=== PATIENT | female | born 1940 | race Caucasian/White ===

== ENCOUNTER 2020-03-20 15:27 | Emergency (ER) | payer MEDICARE ==
[~2020-03-20] VITALS: Ht 152.4 cm; Wt 57.4 kg
--- NOTE | 2020-03-20 16:31 | Diagnostic Imaging Report ---
Chest, 1 view, 03/20/2020. History: Pain, fall. Comparison: None available. Findings: The cardiomediastinal silhouette and pulmonary vasculature are within normal limits for a portable exam. There is no focal consolidation or pleural effusion. There are no acute osseous or soft tissue abnormalities. Impression: No acute cardiopulmonary abnormality. Signed by: Jeff Diamond on 03/20/2020 4:28 PM
--- NOTE | 2020-03-20 17:00 | Diagnostic Imaging Report ---
CT of the abdomen and pelvis, without contrast, 03/20/2020. History: Abdominal pain. Comparison: None available. Technique: Multidetector CT scanning of the abdomen and pelvis was performed from the level of the lung bases to the inferior pubic rami without intravenous or oral contrast. Coronal and sagittal multiplanar reformations were obtained. RADIATION DOSE: Total DLP: 409 mGy*cm Dose modulation, iterative reconstruction, and/or weight based adjustment of the mA/kV was utilized to reduce the radiation dose to as low as reasonably achievable. Discussion: Examination is limited without contrast. Lung bases: No visualized abnormalities. Abdomen: The liver, gallbladder, biliary tree, spleen, pancreas, adrenal glands, and kidneys are unremarkable. The abdominal aorta is calcified but within normal limits for size. There is no bowel dilatation. There is no evidence of adenopathy or free fluid. Pelvis: Enlarged uterus is present containing a large calcified fundal mass, measuring over 10 cm. The bladder is unremarkable. There is no evidence of free fluid or adenopathy. Bones and soft tissues: Advanced degenerative changes are present throughout the lower thoracic and lumbar spine without evidence of lytic or sclerotic lesion. There is grade 1 anterolisthesis of L4 and L5 without evidence of spondylolysis. IMPRESSION: 1. Calcified uterine mass consistent with large uterine fibroid. 2. 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 Otherwise unremarkable noncontrast exam. Signed by: Jeff Diamond on 03/20/2020 4:57 PM
--- NOTE | 2020-03-20 17:17 | Emergency Department Note ---
History of Present Illnes History of Present Illness Chief Complaint: Abdominal Complaints History of Present Illness This is a 79 year old female .Chief Complaint Comment Son reports that she had a fall last Tuesday or and hurt her lower back and denies that she hit her head. He is the primary caregiver and has been giving her dulcolax to help with her having a BM since she hurt her lower back in the fall and since yesterday she has been having abd bloating and distention with pain and hard dark tarry stools. Appetite is normal and states that it is hard to understand what is wrong with her. Historian: Patient, Family Member Arrival Mode: Car Onset (how long ago): day(s) (2) Location: abdomen Quality: dull Radiation: Denies non-radiation, Denies back, Denies neck, Denies extremity, Denies abdomen, Denies periumbilical, Denies flank, Denies proximal, Denies distal, Denies other Severity: mild Onset quality: gradual Duration (how long): day(s) (2) Timing of current episode: intermittent Progression: waxing and waning Chronicity: new Context: Denies recent illness, Denies recent surgery, Denies recent immobilization, Denies recent travel, Denies trauma/injury, Denies new medications, Denies hx of DVT/PE, Denies non-compliance w/ medications, Denies other Relieving factors: none Exacerbating factors: none Associated symptoms: Reports denies other symptoms; Denies confusion, Denies chest pain, Denies cough, Denies diaphoresis, Denies fever/chills, Denies headaches, Denies loss of appetite, Denies malaise, Denies nausea/vomiting, Denies rash, Denies seizure, Denies shortness of breath, Denies syncope, Denies weakness, Denies other Treatments prior to arrival: none Past Medical/Family History Physician Review I have reviewed the patient's past medical and family history. Any updates have been documented here. Past Medical History Recent Fever: No Clinical Suspicion of Infectio: No New/Unexplained Change in Ment: No Past Medical History: Hypertension, Diabetes, Hyperlipedemia Past Surgical History: None Social History Smoking Cessation: Never Smoker Counseling Performed: No Alcohol Use: None Any Illegal Drug Use: No Physically hurt or threatened: No Other Any Pre-Existing Lines (PICC,: No Review of Systems Review of Systems Constitutional: Reports no symptoms EENTM: Reports no symptoms Cardiovascular: Reports no symptoms Respiratory: Reports no symptoms Gastrointestinal: Reports no symptoms Genitourinary: Reports no symptoms; Denies as per HPI, Denies discharge, Denies dysuria, Denies frequency, Denies hematuria, Denies pain, Denies other Musculoskeletal: Reports no symptoms Integumentary: Reports no symptoms; Denies as per HPI, Denies change in color, Denies change in hair/nails, De nies dryness, Denies lesions, Denies lumps, Denies rash, Denies poor turgor, Denies ecchymosis, Denies other Neurological: Reports no symptoms; Denies as per HPI, Denies headache, Denies numbness, Denies paresthesia, Denies pre-existing deficit, Denies seizure, Denies tingling, Denies tremors, Denies weakness, Denies other Psychological: Reports no symptoms; Denies as per HPI, Denies anxiety, Denies depressed, Denies emotional problems, Denies other Endocrine: Reports no symptoms Hematological/Lymphatic: Reports no symptoms Physical Exam Related Data Allergies: Coded Allergies: No Known Allergies (Unverified , 03/20/20) Triage Vital Signs Vital Signs Date Time Temp Pulse Resp B/P (MAP) Pulse Ox O2 Delivery O2 Flow Rate FiO2 03/20/20 15:35 99.6 66 18 146/58 96 Room Air Vital signs reviewed: Yes Physical Exam CONSTITUTIONAL Constitutional: Present well-developed, Present well-nourished HENT HENT: Present normocephalic, Present atraumatic, Present oropharynx clear/moist, Present nose normal HENT L/R: Present left ext ear normal, Present right ext ear normal EYES Eyes: Reports PERRL, Reports conjunctivae normal NECK Neck: Present ROM normal PULMONARY Pulmonary: Present effort normal, Present breath sounds normal CARDIOVASCULAR Cardiovascular: Present regular rhythm, Present heart sounds normal, Present capillary refill normal, Present normal rate GASTROINTESTINAL Abdominal: Present soft, Present nontender, Present bowel sounds normal GENITOURINARY Genitourinary: Present exam deferred SKIN Skin: Present warm, Present dry MUSCULOSKELETAL Musculoskeletal: Present ROM normal NEUROLOGICAL Neurological: Present alert, Present oriented x 3, Present no gross motor or sensory deficits PSYCHOLOGICAL Psychological: Present mood/affect normal, Present judgement normal Results Laboratory Lab results reviewed: Yes Imaging Imaging results reviewed: Yes Assessment & Plan Medical Decision Making MDM SBO CONTIPATION Reassessment Reassessment time: 17:16 Reassessment BETTER Assessment & Plan Final Impression: (1) Abdominal pain (2) Fibroid Depart Disposition: HOME, SELF-CARE Last Vital Signs Date Time Temp Pulse Resp B/P (MAP) Pulse Ox O2 Delivery O2 Flow Rate FiO2 03/20/20 15:35 99.6 66 18 146/58 96 Room Air TONYA MCDERMOTT MD Mar 20, 2020 17:16
[2020-03-20] MEDS ORDERED: LACTULOSE20 GM/30 M PO (17:18)
[2020-03-20] MEDS ORDERED: MULTIBETIC (17:30)
[2020-03-20] MEDS ORDERED: LISINOPRIL10 MG PO (17:30)
[2020-03-20] MEDS ORDERED: FISH OIL 1,0001 EAC2 (17:30)
[2020-03-20] MEDS ORDERED: VITAMIN C500 M4 (17:30)
[2020-03-20] MEDS ORDERED: FERROUS SULFAT324 MG (17:30)
[2020-03-20] MEDS ORDERED: VITAMIN D3 COM1 EACH (17:30)
[2020-03-20] MEDS ORDERED: ACTOS30 MG PO (17:30)
[2020-03-20] MEDS ORDERED: METFORMIN HCL500 MG PO (17:30)
[2020-03-20] MEDS ORDERED: DULCOLAX5 MG (17:30)
[2020-03-20] MEDS ORDERED: VITAMIN B COMP0.4 MG (17:30)
[2020-03-20] MEDS ORDERED: ARICEPT5 MG PO (17:30)
[2020-03-20] MEDS ORDERED: SIMVASTATIN10 MG PO (17:30)
[2020-03-20 17:31] VITALS: BP 156/56
== END 2020-03-20 17:24 | disposition home or self-care (01) ==
LOC: FSED 15:50
DX: M54.5 Low back pain (principal); R10.30 Lower abdominal pain, unspecified; D25.9 Leiomyoma of uterus, unspecified; W18.30XA Fall on same level, unspecified, initial encounter; I10 Essential (primary) hypertension; E11.9 Type 2 diabetes mellitus without complications; E78.5 Hyperlipidemia, unspecified
CPT/HCPCS: 71045; 74176; 80048; 80076; 81003; 85025; 99284